=== PATIENT | female | born 1950 | race Caucasian/White ===

== ENCOUNTER → 2023-07-16 | Outpatient (CLI) | payer MEDICARE | END | disposition home or self-care (01) | LOC: LABPAT 10:29 | PROVIDERS: ATTEND Orthopaedic Surgery | DX: Z01.812 Encounter for preprocedural laboratory examination (principal); M17.12 Unilateral primary osteoarthritis, left knee; Z22.322 Carrier or suspected carrier of Methicillin resistant Staphylococcus aureus | CPT/HCPCS: 87070 ==

== ENCOUNTER 2023-08-21 05:52 | Observation (INO) | payer MEDICARE ==
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
[~2023-08-21 05:52] MED LIST: ACETAMINOPHEN TAB 500 MG TAB PO PRN; MELOXICAM 7.5 MG TAB PO PRN; TRANEXAMIC 1,000 MG/100ML-NACL 1,000 MG in SALINE 1 100ML.BAG IVPB PRN
[2023-08-21] MEDS ORDERED: LIDOCAINE 1% (10MG/ML) FOR IV START INTRADERMA PRN (06:08)
[2023-08-21] MEDS ORDERED: DEXAMETHASONE SOD PHOSPHATE 4 MG/ML 1 ML VIAL IV ONE (06:08)
[2023-08-21] MEDS ORDERED: ONDANSETRON 4 MG/2 ML VIAL IVP ONE (06:08)
[2023-08-21] MEDS: LACTATED RINGERS 1,000 ML IV SCH (06:38)
[2023-08-21] MEDS ORDERED: fentaNYL (PF) 50 MCG/1 ML VIAL IVP ONE (06:47)
[2023-08-21] MEDS ORDERED: MIDAZOLAM 2 MG/2 ML VIAL IVP ONE ×2 (06:47→07:05)
[2023-08-21] MEDS ORDERED: MIDAZOLAM 2 MG/2 ML VIAL IV PRN (07:00)
[2023-08-21] MEDS ORDERED: fentaNYL (PF) 50 MCG/ML 2 ML AMP ONE (07:30)
[2023-08-21] MEDS ORDERED: PROPOFOL 10 MG/ML 20 ML VIAL IV ONE (07:30)
[2023-08-21] MEDS ORDERED: MIDAZOLAM 2 MG/2 ML VIAL ONE (07:30)
[2023-08-21] MEDS ORDERED: SODIUM CHLORIDE 0.9% (PF) 10 ML VIAL ONE (07:30)
[2023-08-21] MEDS ORDERED: ROPIVACAINE 5 MG/ML 30 ML VIAL ONE (07:30)
[2023-08-21] MEDS ORDERED: TRANEXAMIC 1,000 MG/100ML-NACL PREMIX BAG ONE (07:30)
[2023-08-21] MEDS ORDERED: ceFAZolin 1,000 MG in SODIUM CHLORIDE 0.9% 1,000 ML IRRIGATION ONE (08:05)
[2023-08-21] MEDS ORDERED: NALOXONE 0.4 MG/ML 1 ML VIAL IV PRN (09:06)
[2023-08-21] MEDS ORDERED: MAGNESIUM HYDROXIDE 2,400 MG/30 ML CUP PO PRN (09:06)
[2023-08-21] MEDS ORDERED: HYDROmorphone 0.5 MG/0.5 ML SYRINGE IVP PRN ×2 (09:06)
[2023-08-21] MEDS ORDERED: HYDROcodone/APAP 5-325MG 1 EACH TAB PO PRN (09:06)
[2023-08-21] MEDS ORDERED: LACTATED RINGERS 1,000 ML IV ONE (09:17)
--- NOTE | 2023-08-21 09:27 | P.OP ---
Date of Procedure: 08/21/23 Preoperative Diagnosis: Left knee severe tricompartmental osteoarthrosis/chondrocalcinosis Postoperative Diagnosis: Same Procedure(s) Performed: Left total knee arthroplastycementedposterior stabilized Implants: Depuy Attune size 5 neural cemented femoral component, size 4 cemented tibial component, 9 mm articular surface, 35 mm cemented patellar component. This is a posterior stabilized implant. Anesthesia: regional, spinal Surgeon: Saad Lo Bend Sorter #1: Khurram Arias Estimated Blood Loss (ml): 50 Pathology: none sent Condition: stable Disposition: PACU Indications for Procedure: The patient is a 73-year-old female who presents with progressive left knee pain secondary to osteoarthrosis despite previous conservative measures. A discussion of the risks and benefits of operative intervention versus continued conservative measures was made with patient. She opted to proceed with surgery. Operative risks to include infection, neurovascular injury, development of blood clots, fracture, possible component loosening/failure and possible need for subsequent procedures was discussed. Informed consent was obtained. Operative Findings: As below Description of Procedure: The patient was brought to the operating room, and after induction of spinal anesthesia the left lower extremity was prepped and draped in a normal fashion. The tourniquet was inflated to 270 mm marker. A longitudinal incision extending 3 finger breaths above the superior pole of patella extending to the medial aspect the tibial tubercle was then made. The skin and subcutaneous tissues were divided sharply. Electrocautery was used for hemostasis. A medial parapatellar arthrotomy was performed. The medial soft tissues to include the superficial and deep portions of the medial collateral ligament were elevated subperiosteally. The patella was everted. A portion of the retropatellar fat pad was excised sharply. The anterior cruciate ligament was sacrificed. Blunt retractors were placed. A starting hole was made in the distal femur 1 cm anterior to the posterior cruciate ligament origin. An intramedullary femoral guide was then inserted planning on 5 valgus distal cut with 9 mm distal resection. The cutting block was pinned in place. The distal cut was then made. The posterior referencing sizing guide was utilized. I felt size 5 narrow was most appropriate. 3 of external rotation was built into the system and verified off the trans-epicondylar axis and the posterior condyles. The cutting block was pinned in place. The anterior, posterior, and chamfer cuts then made. Bone fragments were removed. The intercondylar guide was placed and the notch cut was made with a sagittal saw. The bone block was removed in one fragment. The trial component was then placed. There is good anterior to posterior and medial to lateral fit. The distal peg holes were drilled. The trial component was removed. Attention was then paid towards preparing the proximal tibia. An extra medullary guide was utilized in line with the tibial shaft and second metatarsal distally. I planned on 4 mm resection from the medial compartment. The cutting block was pinned in place. The proximal tibial cut was then made. The bone was removed in one fragment. The remnants of the medial and lateral menisci were excised at the capsular junction with electrocautery. The tibia sized most appropriately at size 4. The trial femoral and tibial components were placed along with a 9 mm articular surface. I was able to obtain full flexion and extension with internal and external rotation. After several flexion and extension cycles, the tibial rotation was marked with electrocautery line with the medial one third of the tibial tubercle. Attention was then paid towards preparing the patella. A patella reamer was utilized taking stem to 14 mm of bone stock. A good flush cut was made. The patella sized most appropriately 35 mm. The peg holes were drilled. The trial components placed. I had good patellofemoral tracking with no hands technique. The trial components were then removed. The tibia was prepared in the appropriate rotation with appropriate drill and keel punch. The posterior osteophytes were removed with a curved osteotome. The flexion and extension gaps were checked and felt to be symmetric at 9 mm. A trial components were th en removed. The bony surfaces were prepared with pulsatile lavage and dried. The tibial component was then cemented place was fully seated. Excess cement was removed. The femoral component cemented place and was fully seated. Excess cement was removed. The trial 9 mm articular surface was placed and the knee was put in full extension. The patella component was cemented place. After the cement had sufficiently hardened, the knee was again taken through a range of motion. Again I was able to obtain full flexion and extension with varus and valgus stress. The trial 9 mm articular surface was removed and the final one inserted. This was fully seated. Care was taken to avoid any soft tissue interposition. Pulsatile lavage was again utilized. The medial parapatellar arthrotomy was closed with #2 Ethibond suture. The tourniquet was deflated with approximately 60 minutes total tourniquet time. Final hemostasis was obtained with the cautery. There was minimal bleeding therefore a deep drain was not placed. The subcutaneous tissues were reapproximated with interrupted 2-0 Vicryl sutures. The skin was reapproximated with 3-0 subcuticular strata fix suture. Skin tape and adhesive was applied. A sterile dressing was applied. The patient was awoken from sedation and transferred to recovery room in good condition. Blood loss was estimated at [] mL. No complications were incurred. Sponge and needle counts were correct at the end of the case. Khurram ZAMARRIPA assisted during the major components of this case to include exposure, bone resection, implantation, and closure.
[2023-08-21] MEDS ORDERED: ROPIVACAINE 1,100 MG, SODIUM CHLORIDE 0.9% 500 ML 330 ML, EMPTY PAIN BALL 1 EACH MISCELLANE PRN ×2 (10:04)
--- NOTE | 2023-08-21 10:41 | XR ---
EXAMINATION TYPE: XR knee limited LT DATE OF EXAM: 08/21/2023 10:21 AM CLINICAL INDICATION:Female, 73 years old with history of Evaluation for Postop abnormality and alignm ent; [facility] COMPARISON: None. TECHNIQUE AND FINDINGS: Two views of the left knee. A total knee arthroplasty is in place, appears intact and normally aligne d. No abnormal perihardware lucency or fracture. No significant malalignment. Posterior resurfacing c hanges of the patella. Soft tissues show generalized swelling with no unexpected radiopaque foreign b desirae. Some regional soft tissue gas is present, not unexpected postoperative. IMPRESSION: Status post placement of total knee arthroplasty. No evidence of complication.
--- NOTE | 2023-08-21 11:45 | P.ANPRN ---
Procedure Note - Anesthesia - Nerve Block Performed Left Adductor Canal Infusion Time Out Performed: Yes ([id number]) Date of Procedure: 08/21/23 Location of Patient: PreOp Indication: Acute Post-Operative Pain, Dx/Pain Location (Left knee), Requested by Surgeon Specifically requested for management of pain by DrSarmad: Saad Lo Sedation Type: Sedate with meaningful contact maintained Position: Supine Catheter: Indwelling Needle Types: Pajunk Needle Gauge: 18 Ultrasound used to visualize needle placement: Yes Ultrasound used to observe medication spread: Yes Injectate: 0.5% Ropivacaine (see comment for volume) (20 cc + 10 cc of normal saline) Blood Aspirated: No Pain Paresthesia on Injection Noted: No Resistance on Injection: Normal Image Stored and Saved: Yes Events: Uneventful and Well Tolerated Left iPack Single Time Out Performed: Yes Date of Procedure: 08/21/23 Location of Patient: PreOp Indication: Acute Post-Operative Pain, Dx/Pain Location (Left Knee), Requested by Surgeon Specifically requested for management of pain by DrSarmad: Saad Lo Sedation Type: Sedate with meaningful contact maintained Position: Right Lateral Catheter: None Needle Types: Pajunk Needle Gauge: 21 Ultrasound used to visualize needle placement: Yes Ultrasound used to observe medication spread: Yes Injectate: 0.5% Ropivacaine (see comment for volume) (20 cc + 10 cc of normal saline) Blood Aspirated: No Pain Paresthesia on Injection Noted: No Resistance on Injection: Normal Image Stored and Saved: Yes Events: Uneventful and Well Tolerated
[2023-08-21] MEDS: HYDROmorphone 0.5 MG/0.5 ML SYRINGE IVP PRN ×2 (13:11→13:27)
[2023-08-21] MEDS ORDERED: SENNOSIDES-DOCUSATE SODIUM 1 EACH TAB PO SCH (21:00)
[2023-08-22] MEDS: HYDROcodone/APAP 7.5-325MG 1 EACH TAB PO PRN ×3 (02:04→14:09)
[2023-08-22] MEDS: LACTATED RINGERS 1,000 ML IV SCH (08:17)
[2023-08-22] MEDS: hydrOXYzine pamoate 25 MG CAP PO PRN ×2 (08:19→14:08)
[2023-08-22 08:33] LABS: Basophils # (A) 0.02 X 10*3/uL (0.00-0.10); Basophils % (A) 0.2 %; Eosinophils # (A) 0 X 10*3/uL (0.04-0.35); Eosinophils % (A) 0 %; HCT 33.6 % (37.2-46.3); Lymphocytes # (A) 2.08 X 10*3/uL (0.90-5.00); Lymphocytes % (A) 22.3 %; MCH 29.3 pg (27.0-32.0); MCHC 32.7 g/dL (32.0-37.0); MCV 89.6 FL (80.0-97.0); Mean Platelet Volume 9.9 FL (9.5-12.2); Monocytes # (A) 1.12 X 10*3/uL (0.20-1.00); NRBC Per 100 WBC 0 X 10*3/uL (0.00-0.01); Neutrophils % (A) 65.3 %; Platelet Count 208 X 10*3/uL (140-440); RBC 3.75 X 10*6/uL (4.10-5.20); RDW 13.2 % (11.5-14.5); WBC 9.34 X 10*3/uL (4.50-10.00)
[2023-08-22 08:56] VITALS: BP 127/77; PULSE 79; RESP 20; TEMP 97.7
[2023-08-22] MEDS ORDERED: ASPIRIN 325 MG TAB PO SCH (09:00)
[2023-08-22] MEDS ORDERED: RIVAROXABAN 10 MG TAB PO SCH (09:00)
--- NOTE | 2023-08-22 10:12 | P.PN ---
Subjective Progress Note Date: 08/22/23 Principal diagnosis: Status post left total knee arthroplasty Patient evaluated at bedside, she is resting comfortably in her hospital bed, is present. Patient has ambulated already without assistance of therapy doing okay. Pain is well-controlled currently. Denies headaches, lightheadedness, chest pain or shortness of breath Objective - Vital Signs Vital signs: Vital Signs Temp 97.7 F 08/22/23 08:03 Pulse 79 08/22/23 08:03 Resp 20 08/22/23 08:03 BP 127/77 08/22/23 08:03 Pulse Ox 94 L 08/22/23 08:03 FiO2 Intake & Output 08/21/23 08/22/23 08/22/23 18:59 06:59 18:59 Intake Total 1551 Output Total 50 Balance 1501 Weight 94.5 kg Intake: IV 1551 Output: Estimated Blood Loss 50 Other: Voiding Method Toilet # Voids 1 1 - Exam Left lower extremity: Incision is clean, dry, and intact. The exofin fusion tape is in good condition. There is minimal soft tissue swelling and ecchymosis surrounding the medial and lateral aspects of the incision. Calf is soft, no tenderness with palpation. Plantar flexion, dorsiflexion, EHL, FHL are intact. Sensory exam to light touch throughout the extremity is intact, dorsal pedis pulses 2+. - Labs CBC & Chem 7: 08/22/23 04:06 Labs: Abnormal Lab Results - Last 24 Hours (Table) 08/22/23 Range/Units 04:06 RBC 3.75 L (4.10-5.20) X 10*6/uL Hgb 11.0 L (12.0-15.0) g/dL Hct 33.6 L (37.2-46.3) % Monocytes # 1.12 H (0.20-1.00) X 10*3/uL Eosinophils # 0 L (0.04-0.35) X 10*3/uL Assessment and Plan Assessment: Postoperative day #1 status post left total knee arthroplasty Plan: Pain control, plan for discharge home on [place], also discussed the use of Tylenol DVT prophylaxis, aspirin 325 mg daily for 2-4 weeks Wound care instructions were discussed Home therapy/nursing after discharge Medical recommendations appreciated PT/OT today Discharge planning: Pending patient with physical therapy, anticipated discharge home today with home therapy Time with Patient: Less than 30
--- NOTE | 2023-08-22 10:14 | P.DS ---
Providers Date of admission: 08/21/2023 Expected date of discharge: 08/22/23 Attending physician: Saad Lo Consults: 08/21/23 09:06 Consult Physician Routine Consulting Provider: Flavia Carlos Consult Reason/Comments: medical management s/p left total knee arthroplasty Do you want consulting provider notified?: Yes Primary care physician: Mauricio Randolph Procedures: Date of admission: 08/21/2023 Date of discharge: Admission diagnosis: Status post left total knee arthroplasty Discharge diagnosis: Same Attending physician: Dr. Lo Surgical procedures: Left total knee arthroplasty Brief history: Patient is a 73 year-old female with a history of primary left knee osteoarthritis. At this point patient has failed conservative treatment measures and has opted to proceed with a elective total knee arthroplasty. Hospital course: Details of patient's surgery can be found in operative report. Patient tolerated the procedure well and was subsequently transported to [facility] floor. Patient's orthopeidc and medical care was provided daily. Patient had daily laboratory tests performed for evaluation of overall blood counts. Patient had daily physical therapy to include strengthening range of motion as well as education with walker ambulation. Patient was treated with aspirin for their postoperative DVT prophylaxis during their inpatient stay. Patient was noted to have a relatively uneventful postoperative course. Patient reported satisfactory pain control with oral pain medications by postoperative day 0. Patient showed satisfactory progress with physical therapy. Patient moved steadily through the program and had no difficulty meeting the goals by postoperative day 1. Given patient's otherwise satisfactory course and having met physical therapy goals, plan is to discharge patient home on postoperative day 1. Discharge condition/disposition: Patient will be discharged home in stable condition. Discharge medications: Instructions are given on resumption of patient's normal daily medications per primary care recommendation, in addition patient will be prescribed aspirin 325 mg, Senokot-S. Discharge instructions: 1. Wound care and infection precautions, keep incision dry and covered while showering, no lotions, creams, moisturizers. No soaking, tubs, pools, hottubs. Do not scrub over the incision. 2. Weight-bear as tolerated with walker / cane until follow-up. 3. Ice and elevate when necessary. Do not exceed 20 minutes per hour with ice pack. 4. Utilize compression sleeve until seen at first follow up appointment. 5. Visiting nursing care. 6. Home physical therapy including home CPM. 7. Pain meds and anticoagulants per prescription. 8. Pain medication has potential to cause constipation. Increase oral fluid and fiber intake. Contact primary care provider if you have not had a bowel movement within 48 hours after discharge 9. No anti-inflammatory medication until discussed at first post operative visit, this including Motrin, Aleve, Mobic, Diclofenac. 10. Follow up in office at 2 weeks postop with Latrell Valadez PA-C/Khurram Mendoza 11. Follow up with your primary care doctor 7-10 days after discharge. 12. Contact [facility] with any questions, . Patient Condition at Discharge: Good Plan - Discharge Summary Discharge Rx Participant: Yes New Discharge Prescriptions: No Action Omeprazole [PriLOSEC] 20 mg PO DIRECTED PRN PRN Reason: Heartburn Turmeric Root Extract [Turmeric] 500 mg PO HS Cholecalciferol [Vitamin D3] 2,000 unit PO HS Magnesium 200 mg PO HS DULoxetine HCL [Cymbalta] 30 mg PO HS Levothyroxine Sodium [Synthroid] 50 mcg PO DAILY Losartan Potassium [Cozaar] 100 mg PO HS Cannabidiol (Cbd) [Epidiolex] 0 mg TOPICAL DIRECTED PRN PRN Reason: Pain Discharge Medication List Cholecalciferol [Vitamin D3] 2,000 unit PO HS 10/20/15 [History] Magnesium 200 mg PO HS 10/20/15 [History] Omeprazole [PriLOSEC] 20 mg PO DIRECTED PRN 10/20/15 [History] Turmeric Root Extract [Turmeric] 500 mg PO HS 10/20/15 [History] Cannabidiol (Cbd) [Epidiolex] 0 mg TOPICAL DIRECTED PRN 08/17/23 [History] DULoxetine HCL [Cymbalta] 30 mg PO HS 08/17/23 [History] Levothyroxine Sodium [Synthroid] 50 mcg PO DAILY 08/17/23 [History] Losartan Potassium [Cozaar] 100 mg PO HS 08/17/23 [History] Follow up Appointment(s)/Referral(s): Khurram Arias, JORADN [PHYSICIAN LICENSED VOCATIONAL NURSE] - 2 Weeks Patient Instructions/Handouts: Knee Replacement (DC), Knee Replacement (GEN) Activity/Diet/Wound Care/Special Instructions: Orthopedic Discharge Instructions: 1. Wound care and infection precautions, keep incision dry and covered while showering, no lotions, creams, moisturizers. No soaking, pools, hot tubs. Do not scrub over incision. 2. Weight-bear as tolerated with walker / cane until follow-up. 3. Ice and elevate when necessary. Do not exceed 20 minutes per hour with ice pack. 4. Utilize compression sleeve until seen at first follow up appointment. 5. Pain meds and anticoagulants per prescription. 6. Pain medication has potential to cause constipation. Increase oral fluid and fiber intake. Contact primary care provider if you have not had a bowel movement within 48 hours after discharge. 7. No anti-inflammatory medication until discussed at first post operative visit, this including Motrin, Aleve, Mobic, Diclofenac. 8. Follow up in office at 2 weeks postop with Latrell Valadez PA-C / Khurram Arias PA-C 9. Follow up with your primary care doctor 7-10 days after discharge. 10. Contact [facility] with any questions, . Keep incision clean, dry, intact. While showering, cover fusion tape with Saran wrap. Keep fusion tape on until follow-up appointment in office in 2 weeks Discharge Disposition: HOME WITH HOME HEALTH SERVICES
--- NOTE | 2023-08-22 13:53 | P.PN ---
Progress Note - Text Progress Note Date: 08/22/23 Anesthesiology Postop day 1 status post total knee arthroplasty with adductor canal catheter. Patient doing well. VAS 7-8 out of 10. Gross strength intact in lower extremity. Afebrile. Denies alterations in sensorium. Catheter site intact. Heart regular rate Lungs nonlabored Abdomen nondistended Assessment: Postop day 1 status post total knee arthroplasty with adductor canal catheter Plan: 1.All questions answered. Maintain catheter 2 more days with patient removal at home. Instructions to be given at discharge. 2.This note was dictated using [employer] software. Please be advised there is a potential for misspellings or errors in pipe joints supervisor.
--- NOTE | 2023-08-22 15:21 | P.CONS ---
History of Present Illness - Reason for Consult Consult date: 08/22/23 Medical management, status post left knee arthroplasty - History of Present Illness This is a pleasant 73-year-old female who was recently admitted under orthopedic services status post left total knee arthroplasty postop day 1. Patient follows with Dr. Randolph in the outpatient setting with a past medical history of atrial fibrillation, angina, GERD, hypertension, myocardial infarction, osteoarthritis, rheumatoid arthritis, history of migraines, anxiety. Patient reports she did undergo presurgical clearance in the outpatient setting prior to surgery. Patient reports to having a touch of nausea this morning most likely medication effect and has resolved and will give a couple of Zofran for discharge as patient reports she is planning on going home today. Patient reports to working well with physical therapy and has support at home. Patient encouraged to bring incentive spirometer home and continue using at least 10 times every hour while awake. Home medications have been reviewed and resumed as appropriate. Patient does have a follow-up appointment in the beginning of the year with primary care provider. Patient is medically stable for discharge once cleared by orthopedics. Review Of Systems: Constitutional: No fever, no chills, no night sweats. No weight change. No weakness, fatigue or lethargy. No daytime sleepiness. EENT: No headache. No blurred vision or double vision, no loss of vision. No loss of Hearing, no ringing in the ears, no dizziness. No nasal drainage or congestion. No epistaxis. No sore throat. Lungs: No shortness of breath, cough, no sputum production. No wheezing. Cardiovascular: No chest pain, no lower extremity edema. No palpitations. No paroxysmal nocturnal dyspnea. No orthopnea. No lightheadedness or dizziness. No syncopal episodes. Abdominal: No abdominal pain. No nausea, vomiting. No diarrhea. No constipation. No bloody or tarry stools.. No loss of appetite. Genitourinary: No dysuria, increased frequency, urgency. No urinary retention. Musculoskeletal: No myalgias. No muscle weakness, no gait dysfunction, no frequent falls. No back pain. No neck pain. Reports of some left knee discomfort Integumentary: No wounds, no lesions. No rash or pruritus. No unusual bruising. No change in hair or nails. Neurologic: No aphasia. No facial droop. No change in mentation. No head injury. No headache. No paralysis. No paresthesia. Psychiatric: No depression. No anxiety. No mood swings. Endocrine: No abnormal blood sugars. No weight change. No excessive sweating or thirst. No cold intolerance. PHYSICAL EXAMINATION: GENERAL: The patient is alert and oriented x4, Well developed, well nourished. Obese HEENT: Pupils are round and equally reacting to light. EOMI. no scleral icterus. No conjunctival pallor. Normocephalic, atraumatic. No pharyngeal erythema. No thyromegaly. CARDIOVASCULAR: S1 and S2 muffled PULMONARY: diminished breath sounds bilaterally with no wheezing or rhonchi noted. ABDOMEN: soft. Nontender on exam. obese. non-distended, normoactive bowel sounds. No palpable organomegaly. MUSCULOSKELETAL: No joint swelling or deformity. EXTREMITIES: No cyanosis, clubbing, or pedal edema. Left knee surgical site is currently dry and intact with no significant redness and some minimal swelling noted, positive pedal pulses and capillary refill is less than 3 NEUROLOGICAL: Gross neurological examination did not reveal any focal deficits. Diffuse weakness SKIN: No rashes. Assessment: Status post left total knee arthroplasty History of atrial fibrillation History of angina GERD Hypertension history history of myocardial infarction History of osteoarthritis history of rheumatoid arthritis History of anxiety obesity with a BMI of 39.4 GI prophylaxis DVT prophylaxis Full code Plan: Recommend to continue with current medications and management per orthopedic services. Patient is postop day 1 left total knee arthroplasty and reports to working well with physical therapy Patient with incentive spirometer at the bedside encourage the patient a take home and continue using while awake at least 10 times every hour Patient was up and working with physical therapy with plans on going home and has received a walker. Patient reports she has support at home Patient did have some nausea most likely medication effect and this has resolved and will give some Zofran on discharge Home medications reviewed and resumed as appropriate Homecare is being arranged Patient instructed to follow-up with primary care provider as well as orthopedics as scheduled Patient is medically stable once cleared by orthopedics Thank you kindly for this consultation. We will continue to follow with orthopedics during hospitalization The impression and plan of care has been dictated by Teresa Little, nurse practitioner as directed. Dr. Bharti MD I have performed a history and examination and MDM of this patient, discussed the same with the dictator, and agree with the dictator's assessment and plan as written ,documented as a scribe. Based on total visit time, I have performed more than 50% of the visit. Any additional findings or plans will be noted. Past Medical History Past Medical History: Atrial Fibrillation, Chest Pain / Angina, GERD/Reflux, Hypertension, Myocardial Infarction (ME), Musculoskeletal Disorder, Osteoart hritis (OA), Rheumatoid Arthritis (RA) Additional Past Medical History / Comment(s): past hx. Migraines, colitis, degenerative disc. pseudo gout knee, no recent chest pain or angina, no recent problems w/a-fib that she knows of,. KICKED [place] [employer] [place] 1975. Last Myocardial Infarction Date:: 03/03/2011 History of Any Multi-Drug Resistant Organisms: None Reported Past Surgical History: Back Surgery, Cholecystectomy, Heart Catheterization, Orthopedic Surgery, Tubal Ligation Additional Past Surgical History / Comment(s): D&C. LAMINECTOMY L1-L5. Past Anesthesia/Blood Transfusion Reactions: Previous Problems w/ Anesthesia, Family History of Problems w/ Anesthesia, Family Hisory of Malignant Hyperthermia Additional Past Anesthesia/Blood Transfusion Reaction / Comm: no hx. of transfusion reaction, Extremely difficult to wake up after surgery. States nephew has malignant hyperthermia, pt. has never been tested Smoking Status: Never smoker - Past Family History Mother Family Medical History: Deep Vein Thrombosis (DVT) Medications and Allergies Home Medications Medication Instructions Recorded Confirmed Type Cholecalciferol [Vitamin D3 (25 2,000 unit PO HS 10/20/15 08/21/23 History Mcg = 1000 Iu)] Magnesium 200 mg PO HS 10/20/15 08/21/23 History Omeprazole [PriLOSEC] 20 mg PO DIRECTED PRN 10/20/15 08/21/23 History Turmeric Root Extract [Turmeric] 500 mg PO HS 10/20/15 08/21/23 History Cannabidiol (Cbd) [Epidiolex] 0 mg TOPICAL DIRECTED PRN 08/17/23 08/21/23 His tory DULoxetine HCL [Cymbalta] 30 mg PO HS 08/17/23 08/21/23 History Levothyroxine Sodium [Synthroid] 50 mcg PO DAILY 08/17/23 08/21/23 History Losartan Potassium [Cozaar] 100 mg PO HS 08/17/23 08/21/23 History Aspirin 325 mg PO DAILY #30 tab 08/22/23 Rx HYDROcodone/APAP 10-325MG [[place] 1 tab PO Q6HR PRN 7 Days #28 tab 08/22/23 Rx 10-325] Ondansetron Odt [Zofran Odt] 4 mg PO Q8HR PRN #10 tab 08/22/23 Rx Sennosides/Docusate Sodium 2 each PO DAILY PRN #30 tablet 08/22/23 Rx [Senna-S 8.6-50 mg Tablet] Allergies Allergy/AdvReac Type Severity Reaction Status Date / Time Iodinated Contrast Media Allergy Severe Anaphylaxis Verified 08/21/23 06:14 [Iodinated Contrast Media - IV Dye] codeine Allergy Rash/Hives Verified 08/21/23 06:14 sumatriptan succinate AdvReac Rash/Hives Verified 08/21/23 06:14 [From Imitrex] Physical Exam Vitals: Vital Signs Temp Pulse Resp BP Pulse Ox 08/22/23 08:03 97.7 F 79 20 127/77 94 L 08/22/23 02:00 98.0 F 89 16 126/75 95 08/21/23 20:00 97.3 F L 94 16 112/73 92 L 08/21/23 14:00 97.6 F 60 17 97/63 95 08/21/23 13:45 87 16 113/58 93 L 08/21/23 13:15 94 17 99/53 95 08/21/23 12:45 81 20 101/53 93 L 08/21/23 12:15 82 16 102/57 96 08/21/23 11:45 72 16 107/58 96 08/21/23 11:15 77 16 105/57 95 08/21/23 11:00 70 16 109/56 97 08/21/23 10:45 84 16 104/55 95 Intake and Output 08/21/23 08/22/23 08/22/23 22:59 06:59 14:59 Other: Voiding Method Toilet # Voids 1 1 Weight 94.5 kg Results CBC & Chem 7: 08/22/23 04:06 Labs: Abnormal Lab Results - Last 24 Hours (Table) 08/22/23 Range/Units 04:06 RBC 3.75 L (4.10-5.20) X 10*6/uL Hgb 11.0 L (12.0-15.0) g/dL Hct 33.6 L (37.2-46.3) % Monocytes # 1.12 H (0.20-1.00) X 10*3/uL Eosinophils # 0 L (0.04-0.35) X 10*3/uL
== END 2023-08-22 14:44 | disposition home health service (06) ==
LOC: OR 05:52 → 4SSUR 09:25 → OR 08-22 11:23 → 4SSUR 08-22 11:23
PROVIDERS: ADMIT Orthopaedic Surgery; ATTEND Orthopaedic Surgery
DX: M17.12 Unilateral primary osteoarthritis, left knee (principal); M11.262 Other chondrocalcinosis, left knee; G89.18 Other acute postprocedural pain; I48.91 Unspecified atrial fibrillation; K21.9 Gastro-esophageal reflux disease without esophagitis; I10 Essential (primary) hypertension; F41.9 Anxiety disorder, unspecified; M06.9 Rheumatoid arthritis, unspecified; I25.2 Old myocardial infarction; E66.9 Obesity, unspecified; Z68.39 Body mass index [BMI] 39.0-39.9, adult; Z79.890 Hormone replacement therapy; Z79.899 Other long term (current) drug therapy; Z88.5 Allergy status to narcotic agent
CPT/HCPCS: 96376; 96361; 96365; 96366; 96375; 97161; 64999; 64448; 85025; 73560; 27447; G0378; C1713 ×2; C1776; C1751; J2250; J1100; J0690 ×2; J2405; J3010 ×2; J2795; J2704; J1170 ×2

== ENCOUNTER → 2024-07-03 | Outpatient (CLI) | payer MEDICARE ==
--- NOTE | 2024-07-03 15:31 | US ---
EXAMINATION TYPE: US kidneys/renal and bladder DATE OF EXAM: 07/03/2024 COMPARISON: NONE CLINICAL INDICATION: Female, 74 years old with history of N20.0 Renal stone; Pain right flank hx of s tones. TECHNIQUE: Grayscale and color Doppler imaging of the bilateral kidneys and urinary bladder: FINDINGS: EXAM MEASUREMENTS: Right Kidney: 11.2 x 4.5 x 5.4 cm Left Kidney: 10.4 x 4.7 x 5.0 cm Right Kidney: Anechoic area mid pole question dilated renal pelvis. Left Kidney: No hydronephrosis or masses seen Bladder: Anechoic Bilateral Jets seen: no There is no evidence for hydronephrosis at this point in time. No nephrolithiasis is seen. Anechoic right mid pole region measuring up to 1.5 cm. No solid renal masses are identified. The urinary cheryle dder is anechoic. IMPRESSION: 1. No hydronephrosis or nephrolithiasis. 2. Anechoic right midpole region which may represent a dilated renal pelvis versus renal sinus cyst. This can be further evaluated with CT urogram as clinically indicated. [facility], , 07/03/2024 3:29 PM
== END | disposition home or self-care (01) ==
LOC: RADUSWWP 14:35
PROVIDERS: ATTEND Internal Medicine Geriatric Medicine
DX: N20.0 Calculus of kidney (principal)
CPT/HCPCS: 76770

== ENCOUNTER → 2025-03-12 | Outpatient (CLI) | payer MEDICARE ==
--- NOTE | 2025-03-12 09:43 | US ---
EXAMINATION TYPE: US carotid duplex BILAT DATE OF EXAM: 03/12/2025 COMPARISON: NONE CLINICAL INDICATION: Female, 74 years old with history of R42 DIZZINESS AND GIDDINESS; Dizziness. Cynthia rivera has history of heart disease. No HTN, no high cholesterol, non-smoker. Additional History: .... TECHNIQUE: Grayscale, color Doppler and spectral Doppler evaluation of the bilateral carotid systems and vertebral arteries. Indirect Doppler criteria was utilized. 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 Mild wall thickening on the left. No plaque. Color Doppler imaging shows patency with blood flow throughout the carotid artery. Spectral waveforms are within normal limits. IMPRESSION: Right: No hemodynamically significant stenosis. Left: No hemodynamically significant stenosis. Criteria for Assigning % of Stenosis / Diameter reduction (Estimation based on the indirect measurements of the internal carotid artery velocities (ICA PSV). 1. Normal (no stenosis)=ICA PSV < 180 cm/s: ratio < 2.0: ICA EDV<40 cm/s. 2. Less than 50% stenosis=ICA PSV < 180 cm/s: ratio < 2.0: ICA EDV<40 cm/s. 3. 50 to 69% stenosis=ICA PSV of 180 to 230 cm/s: ration 2.0 ? 4.0: ICA EDV 40-100 cm/s. PSV 125-180 cm/sec and ICA/CCA PSV Ratio ? 2.0 is also consistent with 50-69% stenosis 4. Greater than 70% stenosis to near occlusion= ICA PSV > 230 cm/s: ratio > 4.0: ICA EDV > 100 cm/s. 5. Near occlusion= ICA PSV velocities may be low or undetectable: variable ratio and ICA EDV. 6. Total occlusion=unable to detect flow. [facility], , 03/12/2025 9:41 AM
--- NOTE | 2025-03-13 10:05 | MM ---
Reason for Exam: Screening (asymptomatic). Last mammogram was performed 2 year(s) and 6 month(s) ago. Patient History: Menarche at age 15. First Full-Term at age 19. Postmenopausal. Patient used Estrogen for 3 years. Patient used Progesterone for 3 years. Risk Values: Aleisha 5 year model risk: 1.4%. NCI Lifetime model risk: 3.1%. Prior Study Comparison: 09/08/2022 Bilateral Screening Mammogram, [facility] [place]. Tissue Density: The breasts are almost entirely fatty. Findings: Analyzed By CAD. Benign-appearing vascular calcifications bilaterally is redemonstrated. There is no suspicious group of microcalcifications or new suspicious mass in either breast. Overall Assessment: Negative, BI-RAD 1 Management: Screening Mammogram of both breasts in 1 year. . Patient should continue monthly self-breast exams. A clinical breast exam by your physician is recommended on an annual basis. This exam should not preclude additional follow-up of suspicious palpable abnormalities. Note on Aleisha scores and lifetime risk: 1. A Aleisha score greater than 3% is considered moderate risk. If this is the case, consider specialist referral to assess eligibility for a risk reducing agent. 2. If overall lifetime risk for the development of breast cancer is 20% or higher, the patient may qualify for future screening with alternating mammogram and breast MRI. [facility], , 03/13/2025 10:02 AM. Electronically signed and approved by: Prashant Michele M.D.
== END | disposition home or self-care (01) ==
LOC: RADUSWWP 08:11
PROVIDERS: ATTEND Internal Medicine Geriatric Medicine
DX: Z12.31 Encounter for screening mammogram for malignant neoplasm of breast (principal); R92.313 Mammographic fatty tissue density, bilateral breasts; R42 Dizziness and giddiness; Z78.0 Asymptomatic menopausal state
CPT/HCPCS: 77063; 77067; 93880